=== PATIENT | female | born 1975 | race Caucasian/White ===

== ENCOUNTER 2016-12-26 22:25 | Emergency (ER) | payer SELFPAY ==
[~2016-12-26] VITALS: Ht 170.2 cm; Wt 110.5 kg
[2016-12-26] MEDS ORDERED: PREDNISONE10 MG PO (22:56)
[2016-12-26] MEDS ORDERED: ULTRAM50 MG PO (22:56)
[2016-12-26 23:04] VITALS: BP 170/67
== END 2016-12-26 23:09 | disposition home or self-care (01) ==
LOC: EME 22:25
DX: M54.9 Dorsalgia, unspecified (principal); M62.830 Muscle spasm of back
CPT/HCPCS: 99281; 99284; J1885; J7512